=== PATIENT | female | born 1990 | race Caucasian/White ===

== ENCOUNTER 2020-08-31 15:56 | Inpatient (IN) ==
[2020-08-31] MEDS ORDERED: Lactated Ringers 1000 ml BAG 1,000 ML IV ONE ×2 (16:46→18:16)
[2020-08-31] MEDS ORDERED: Buffered Lidocaine 1% SYRIN 1 ml INTRADERM ONE (16:46)
[2020-08-31] MEDS ORDERED: Lactated Ringers 1000 ml BAG 1,000 ML IV SCH ×2 (17:00→19:00)
[2020-08-31 17:14] LABS: ABS Lymphocytes 1.5 10^3/ul (1.0-4.8); ABS Monocytes 0.5 10^3/ul (0-0.8); ABS Neutrophils 9.7 10^3/ul (1.5-7.7); Eosinophil % 0.4 %; Hematocrit 34 % (35-47); Hemoglobin 11.4 g/dL (12.0-16.0); Lymphocyte % 12.7 %; Mean Corpuscular HGB Conc 34 g/dL (31-36); Mean Corpuscular Hemoglobin 29 pg (27-31); Mean Corpuscular Volume 87 fL (80-97); Mean Platelet Volume 8.8 fL (7.4-10.4); Platelet Count 218 10^3/uL (150-450); Red Blood Count 3.89 10^6 /uL (3.70-4.87); Red Cell Distribution Width 13 % (10-15); White Blood Count 11.8 10^3/uL (3.5-10.8)
[2020-08-31] MEDS ORDERED: OBEPIDURAL 250 ML EPIDURAL ONE (17:28)
[2020-08-31 17:42] LABS: Urine Benzodiazepine Screen None Detected (None Detect); Urine Cannabinoids Screen None Detected (None Detect); Urine Opiates Screen None Detected (None Detect)
[2020-08-31] MEDS ORDERED: Phenylephrine 40 mcg/mL 10mL (400mcg) SYRINGE IV PUSH PRN ×2 (18:16)
[2020-08-31] MEDS ORDERED: Sodium Citrate/Citric Acid LIQ 15 ML UDC PO PRN (18:16)
[2020-08-31] MEDS ORDERED: Lactated Ringers 1000 ml BAG 500 ML IV PRN ×2 (18:16)
[2020-08-31] MEDS ORDERED: Oxytocin in LR 20 UNITS/1,000 ML BAG IVPB ONE (18:40)
[2020-08-31] MEDS ORDERED: Witch Hazel PAD JAR TOPICAL PRN (18:43)
[2020-08-31] MEDS ORDERED: Glycerin ADULT 2.4 gm SUPP PR PRN (18:43)
[2020-08-31] MEDS ORDERED: Dibucaine 1% OINT 28.35 GM TUBE PR PRN (18:43)
[2020-08-31] MEDS ORDERED: OBEPIDURAL 250 ML EPIDURAL SCH (19:00)
[2020-08-31] MEDS ORDERED: Oxytocin in LR 20 UNITS/1,000 ML BAG IVPB SCH (19:00)
[2020-09-01 08:39] LABS: ABS Basophils 0.1 10^3/ul (0-0.2); ABS Eosinophils 0.1 10^3/ul (0-0.6); ABS Lymphocytes 1.4 10^3/ul (1.0-4.8); ABS Monocytes 0.7 10^3/ul (0-0.8); ABS Neutrophils 10.7 10^3/ul (1.5-7.7); Eosinophil % 0.5 %; Hematocrit 31 % (35-47); Hemoglobin 10.5 g/dL (12.0-16.0); Lymphocyte % 10.8 %; Mean Corpuscular HGB Conc 33 g/dL (31-36); Mean Corpuscular Hemoglobin 29 pg (27-31); Mean Corpuscular Volume 88 fL (80-97); Mean Platelet Volume 8.7 fL (7.4-10.4); Platelet Count 199 10^3/uL (150-450); Red Blood Count 3.58 10^6 /uL (3.70-4.87); Red Cell Distribution Width 13 % (10-15)
[2020-09-02 07:49] VITALS: BP 104/72
== END 2020-09-02 12:41 | disposition home or self-care (01) | DRG 560 ==
LOC: MCHOBOUT 15:56 → MCHOB 16:44
PROVIDERS: ADMIT Midwife; ATTEND Midwife

== ENCOUNTER 2024-05-02 23:55 | Inpatient (IN) ==
[2024-05-03] MEDS ORDERED: Lidocaine 1% VIAL 10 MG/ML 30 ML VIAL INJ PRN (06:35)
[2024-05-03 10:40] LABS: ABS Lymphocytes 1.1 10^3/uL (1.0-4.8); ABS Monocytes 0.5 10^3/uL (0.0-0.9); ABS Neutrophils 7.4 10^3/uL (1.5-7.6); ABS Nucleated RBC 0.01 10^3/ul; Eosinophil % 0.5 %; Hematocrit 35.2 % (35-45); Lymphocyte % 11.9 %; Mean Corpuscular Hemoglobin 31.6 pg (27-33); Mean Corpuscular Hgb Conc 34.1 g/dL (31-36); Mean Corpuscular Volume 92.6 fL (80-97); Mean Platelet Volume 9.2 fL (7.5-11.2); Nucleated Red Blood Cells % 0.1 %/100WBC (0.0-0.8); Platelet Count 220 10^3/uL (150-450); Red Cell Distribution Width 13.2 % (12-17)
[2024-05-03 10:59] LABS: Urine Benzodiazepine Screen None Detected (None Detect); Urine Cannabinoids Screen None Detected (None Detect); Urine Opiates Screen None Detected (None Detect)
[2024-05-03] MEDS: miSOPROStol 100 mcg TAB PO ONE (16:13)
[2024-05-03] MEDS: Lactated Ringers 1000 ml BAG 1,000 ML IV ONE (18:06)
[2024-05-03] MEDS: OBEPIDURAL (200 ML) 200 ML EPIDURAL ONE (18:49)
[2024-05-03] MEDS ORDERED: Phenylephrine 40 mcg/mL 10mL (400mcg) SYRINGE IV PUSH PRN ×2 (19:52)
[2024-05-03] MEDS ORDERED: Sodium Citrate/Citric Acid LIQ 15 ML UDC PO PRN (19:52)
[2024-05-03] MEDS: Oxytocin in LR 20,000 MILLI.UNIT/1,000 ML BAG IV ONE (20:18)
[2024-05-03] MEDS ORDERED: Glycerin ADULT 2.4 gm SUPP PR PRN (20:37)
[2024-05-03] MEDS ORDERED: Lactated Ringers 1000 ml BAG 1,000 ML IV SCH (21:00)
[2024-05-03] MEDS: Dibucaine 1% OINT 28.35 GM TUBE PR PRN (21:15)
[2024-05-03] MEDS: Witch Hazel PAD JAR TOPICAL PRN (21:15)
[2024-05-04] MEDS: Benzocaine/Menthol LOZ MT PRN (01:00)
[2024-05-04 07:50] LABS: ABS Basophils 0.1 10^3/uL (0.0-0.1); ABS Eosinophils 0.1 10^3/uL (0.0-0.5); ABS Lymphocytes 1.4 10^3/uL (1.0-4.8); ABS Monocytes 0.8 10^3/uL (0.0-0.9); ABS Neutrophils 9.8 10^3/uL (1.5-7.6); Hematocrit 34.3 % (35-45); Hemoglobin 11.9 g/dL (11.5-14.3); Lymphocyte % 11.6 %; Mean Corpuscular Hemoglobin 31.9 pg (27-33); Mean Corpuscular Hgb Conc 34.7 g/dL (31-36); Mean Corpuscular Volume 92.1 fL (80-97); Mean Platelet Volume 9.2 fL (7.5-11.2); Platelet Count 193 10^3/uL (150-450); Red Blood Count 3.72 10^6/uL (3.63-4.92); Red Cell Distribution Width 13.4 % (12-17); White Blood Count 12.2 10^3/uL (3.8-11.8)
[2024-05-04] MEDS: Phenylephrine 40 mcg/mL 10mL (400mcg) SYRINGE ONE (10:54)
[2024-05-04] MEDS: Lidocaine 1.5% EPI 1:200,000 30 ML SDV ONE (10:54)
[2024-05-04] MEDS: Lactated Ringers 1000 ml BAG 1,000 ML IV ONE (10:54)
[2024-05-04] MEDS: Lactated Ringers 1000 ml BAG 1,000 ML IV SCH (10:54)
[2024-05-04] MEDS: Oxytocin in LR 20,000 MILLI.UNIT/1,000 ML BAG IV SCH (10:55)
[2024-05-04] MEDS: OBEPIDURAL (200 ML) 200 ML EPIDURAL SCH (10:55)
[2024-05-05 08:21] VITALS: BP 114/71
== END 2024-05-05 11:31 | disposition home or self-care (01) | DRG 560 ==
LOC: MCHOBOUT 23:55 → MCHOB 05-03 06:31
PROVIDERS: ADMIT Midwife; ATTEND Advanced Practice Midwife